=== PATIENT | female | born 1930 | race Caucasian/White ===

== ENCOUNTER → 2016-06-13 | Outpatient (CLI) | payer BC, OTHER ==
[~2016-06-13] MED LIST: ASPI325T45 PO; GARL400T4 PO; LEVO112T2 PO; MULT-845 PO
== END | disposition home or self-care (01) ==
LOC: C.LABPVFM 09:12
PROVIDERS: ATTEND Nurse Practitioner Family
DX: E03.9 Hypothyroidism, unspecified (principal)

== ENCOUNTER → 2016-08-03 | Outpatient (CLI) | payer BC | END | disposition home or self-care (01) | LOC: C.LABPVFM 09:57 | PROVIDERS: ATTEND Nurse Practitioner Family | DX: E03.9 Hypothyroidism, unspecified (principal) ==

== ENCOUNTER → 2016-09-27 | Outpatient (CLI) | payer BC ==
[2016-09-27 12:19] LABS: BASO % 0.5 %; BASO ABS # 0.04 K/uL (0-0.2); COMPLETE YES; EOS % 2.4 %; HEMATOCRIT 43.7 % (37-47); IG% 0.1 %; LYMPH % 29.3 %; LYMPH ABS # 2.17 K/uL (1.2-3.4); MEAN CELL VOLUME 97.5 fL (80-100); MEAN CORPUSCULAR HEMOGLOBIN 31.9 pg (25-34); MEAN CORPUSCULAR HGB CONC 32.7 g/dl (32-36); MEAN PLATELET VOLUME 10.4 fL (7.4-10.4); MONO % 6.4 %; NEUT % 61.3 %; PLATELET COUNT 187 K/uL (130-400); RED BLOOD COUNT 4.48 M/uL (4.2-5.4)
[2016-09-27 12:56] LABS: BLOOD UREA NITROGEN 15 mg/dl (7-18); BUN/CREATININE RATIO 13.2 (10-20); CARBON DIOXIDE 32 mmol/L (21-32); CHLORIDE 105 mmol/L (98-107); GLUCOSE 99 mg/dl (70-99); POTASSIUM 4.4 mmol/L (3.5-5.1); SODIUM 142 mmol/L (136-145)
[2016-09-27 13:02] LABS: CALCIUM 9.2 mg/dl (8.5-10.1)
== END | disposition home or self-care (01) ==
LOC: C.LABPVFM 10:24
PROVIDERS: ATTEND Nurse Practitioner
DX: L98.9 Disorder of the skin and subcutaneous tissue, unspecified (principal); R03.0 Elevated blood-pressure reading, without diagnosis of hypertension

== ENCOUNTER → 2016-12-14 | Outpatient (CLI) | payer BC | END | disposition home or self-care (01) | LOC: C.LABPVFM 09:40 | PROVIDERS: ATTEND Nurse Practitioner Family | DX: E03.9 Hypothyroidism, unspecified (principal) ==

== ENCOUNTER 2017-07-07 18:46 | Inpatient (IN) | payer OTHER, BC ==
[~2017-07-07] VITALS: Ht 149.9 cm; Wt 70.3 kg
[2017-07-07] MEDS ORDERED: ASPIRIN 81 MG CHEW PO STA (19:12)
--- NOTE | 2017-07-07 19:31 | EMERGENCY ROOM VISIT NOTE ---
History Report prepared by Cruz: Antonio Richards Under the Supervision of: Dr. Nash Lr M.D. First contact with patient: 19:03 Chief Complaint: RESPIRATORY PROBLEMS Stated Complaint: DIFF. BREATHING, SWALLOWING Nursing Triage Summary: Pt states around 1630 this afternoon she was cutting brush when she had a sudden onset of SOB that was followed by difficulty swallowing and left sided lip numbness. Upon EMS arrival pt stated swallowing difficulty and numbness had resolved by her voice "felt extremely hoarse". 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 The patient notes that she was outside cutting shrubs and performing various physical activities when she began to feel like she was going to faint. The patient states that she then developed intense generalized weakness, tightness/pressure in her chest, and shortness of breath. She notes that after walking back to her house, the pain in her her chest worsened and began to radiate into her neck. The patient states that the pain in her chest resolved, however, she notes that the pain in her neck worsened and isolated itself on the left side. She reports developing numbness in the left side of her face and neck, and loosing the ability to swallow properly. The patient notes that she took her pulse during the episode and noticed that it was racing. The patient states that the entire episode lasted for roughly one hour. She states that she normally performs physical activity and did not do anything out of the ordinary today. The patient denies any pain radiating down her arm or back, nausea, sweating, trauma, recent illness, fevers, bloody stool, abdominal pain, pain/swelling in her legs, or experiencing any episodes similar to this in the past. She notes that she did feel dizzy during the episode and reports that her sinuses were draining unusually heavily this morning. 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 Denies: Pain radiating down arm or back, trauma, recent illness, pain/swelling in her legs, or experiencing symptoms like this in the past. Review of Systems As above. All other systems reviewed were negative unless otherwise stated in history. At least 10 were reviewed Past Medical & Surgical Medical Problems: (1) Anginal equivalent (2) Arthritis (3) Hypothyroidism (4) Knee pain (5) Knee pain Old medical records were reviewed. Nurse's notes were reviewed and I agree with. Denies history of cardiac disease, diabetes, pulmonary disease Family History No pertinent family history Social History Smoking Status: Former Smoker Alcohol Use: none Drug Use: none Housing Status: lives with family Occupation Status: unemployed Current/Historical Medications Scheduled Calcium & Phosphorus W/ Vitami (Calcium Gummies), 1 TAB PO QAM Levothyroxine Sodium (Levothyroxine Sodium), 125 TAB PO QAM Multiple Vitamins W/ Minerals (Adult One Daily Gummies), 1 TAB PO QAM Scheduled PRN Aspirin (Aspirin), 650 MG PO DIRECTED PRN for Pain Allergies Coded Allergies: Sulfa Antibiotics (Verified Allergy, Intermediate, ITCHY "ALL OVER", ) Physical Exam Vital Signs Date Time Temp Pulse Resp B/P (MAP) Pulse Ox O2 Delivery O2 Flow Rate FiO2 07/07/17 21:00 90 18 130/80 96 Room Air 07/07/17 20:00 102 18 147/83 96 Room Air 07/07/17 18:57 102 07/07/17 18:53 96 Room Air 07/07/17 18:53 36.4 102 18 161/92 98 Room Air Physical Exam General: Non-ill appearing older female in no acute distress. HEENT: Normal cephalic atraumatic. Pupils are equal round and reactive to light. Extraocular movements are intact. Oropharynx is pink with moist mucous membranes. No swelling of the mouth lips or tongue. Neck: Supple with a midline trachea. No meningeal signs or stiffness, no JVD or bruits. No Stridor. Chest: Clear to auscultation bilaterally. No wheezes or rhonchi. No increased work of breathing. Heart: regular rate and rhythm. Abdomen: Soft nontender, nondistended without rebound guarding or rigidity. Extremities: No cyanosis clubbing or edema. No calf tenderness or assymetry Spine/Back. Non tender to palpation. No CVA tenderness Skin: Good turgor without rashes. Neurologic exam: Cranial nerves two through 12 are intact. Motor and sensation are intact and symmetrical throughout. Medical Decision & Procedures ER Provider Diagnostic Interpretation: Chest x-ray per my interpretation reveals no pneumothorax, failure, or infiltrate. CHEST ONE VIEW PORTABLE CLINICAL HISTORY: CHEST PAIN dyspnea COMPARISON STUDY: No previous studies for comparison. FINDINGS: The bones soft tissues and hemidiaphragms are normal. The cardiomediastinal silhouette is normal. The lungs are clear. The pulmonary vasculature is normal. IMPRESSION: Negative chest. The above report was generated using voice recognition software. It may contain grammatical, syntax or spelling errors. Electronically signed by: Jayesh Echols M.D. 07/07/2017 7:28 PM Dictated Date/Time: 07/07/2017 7:28 PM Laboratory Results 07/07/17 19:20 Red Blood Count 4.24, Mean Corpuscular Volume 96.2, Mean Corpuscular Hemoglobin 33.0, Mean Corpuscular Hemoglobin Concent 34.3, Mean Platelet Volume 8.8, Neutrophils (%) (Auto) 73.7, Lymphocytes (%) (Auto) 17.5, Monocytes (%) (Auto) 7.7, Eosinophils (%) (Auto) 0.7, Basophils (%) (Auto) 0.2, Neutrophils # (Auto) 7.02, Lymphocytes # (Auto) 1.67, Monocytes # (Auto) 0.73, Eosinophils # (Auto) 0.07, Basophils # (Auto) 0.02 07/07/17 19:20 Test 07/07/17 19:20 White Blood Count 9.53 K/uL (4.8-10.8) Red Blood Count 4.24 M/uL (4.2-5.4) Hemoglobin 14.0 g/dL (12.0-16.0) Hematocrit 40.8 % (37-47) Mean Corpuscular Volume 96.2 fL (80-100) Mean Corpuscular Hemoglobin 33.0 pg (25-34) Mean Corpuscular Hemoglobin Concent 34.3 g/dl (32-36) Platelet Count 177 K/uL (130-400) Mean Platelet Volume 8.8 fL (7.4-10.4) Neutrophils (%) (Auto) 73.7 % Lymphocytes (%) (Auto) 17.5 % Monocytes (%) (Auto) 7.7 % Eosinophils (%) (Auto) 0.7 % Basophils (%) (Auto) 0.2 % Neutrophils # (Auto) 7.02 K/uL (1.4-6.5) Lymphocytes # (Auto) 1.67 K/uL (1.2-3.4) Monocytes # (Auto) 0.73 K/uL (0.11-0.59) Eosinophils # (Auto) 0.07 K/uL (0-0.5) Basophils # (Auto) 0.02 K/uL (0-0.2) RDW Standard Deviation 49.3 fL (36.4-46.3) RDW Coefficient of Variation 13.9 % (11.5-14.5) Immature Granulocyte % (Auto) 0.2 % Immature Granulocyte # (Auto) 0.02 K/uL (0.00-0.02) Prothrombin Time 10.5 SECONDS (9.0-12.0) Prothromb Time International Ratio 1.0 (0.9-1.1) Activated Partial Thromboplast Time 23.3 SECONDS (21.0-31.0) Partial Thromboplastin Ratio 0.9 D-Dimer 1150 ug/L FEU (0-500) Anion Gap 7.0 mmol/L (3-11) Est Creatinine Clear Calc Drug Dose 24.2 ml/min Estimated GFR () 38.3 Estimated GFR (Non- 33.1 BUN/Creatinine Ratio 15.2 (10-20) Calcium Level 9.4 mg/dl (8.5-10.1) Total Bilirubin 0.5 mg/dl (0.2-1) Direct Bilirubin 0.2 mg/dl (0-0.2) Aspartate Amino Transf (AST/SGOT) 28 U/L (15-37) Alanine Aminotransferase (ALT/SGPT) 27 U/L (12-78) Alkaline Phosphatase 78 U/L (45-117) Total Creatine Kinase 183 U/L (26-192) Creatine Kinase MB 4.1 ng/ml (0.5-3.6) Creatine Kinase MB Ratio 2.2 (0-3.0) Total Protein 7.8 gm/dl (6.4-8.2) Albumin 3.9 gm/dl (3.4-5.0) Lipase 216 U/L (73-393) Laboratory studies as stated above per my review. Medications Administered Medications (Trade) Dose Ordered Sig/Rickey Route Start Time Stop Time Status Last Admin Dose Admin Aspirin (Aspirin Chew) 324 mg NOW STAT PO 07/07/17 19:12 07/07/17 19:14 DC 07/07/17 19:29 324 MG ECG Per My Interpretation Indication: chest pain Rate (beats per minute): 103 Rhythm: sinus tachycardia Findings: no acute ischemic change, no ectopy, other Comparison ECG Date: no prior available ED Course 1904: Past medical records reviewed. The patient was evaluated in room C7, and a complete history and physical examination were performed. 1911: Ordered Aspirin 324 mg PO 1956: I reevaluated the patient, her Troponin levels are elevated. 1999: I reevaluated the patient, she is resting comfortably without chest pain. 2021: I discussed the patient's case with Dr. 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 She was placed in room C7. She is here after having an episode of chest discomfort and shortness of breath. She also fell like she was going to pass out and had pain into her jaw with a little bit of numbness as well and she no other neurologic symptoms. She has no cardiac history. This did occur while she was doing exertional work which is not unusual for her. She is a very fit 87-year-old woman and has never had anything like this before. By the time the ambulance arrived she felt better and she is asymptomatic at present. She looks well on exam. She was given aspirin 324 mg chewable. EKG chest x-ray multiple blood testing was obtained. She was reassessed frequently. She has remained asymptomatic. Chest x-ray does not show congestive heart failure pneumonia or pneumothorax. Her initial EKG does not show any acute STEMI or acute ischemic changes. She has no acute electrolyte or metabolic abnormality. Her troponin was mildly elevated and with this and her story very concerning for angina, I do think she needs to be admitted for further treatment and evaluation cardiac workup. I consulted Dr. Torrez to see to her in the ER for these measures. Medication Reconcilliation Current Medication List: was personally reviewed by me Blood Pressure Screening Patient's blood pressure: Elevated blood pressure Blood pressure disposition: Referred to PCP Consults Time Called: 2017 Consulting Physician: Dr. Meli Goodman [facility] Returned Call: 2021 I discussed the patient's case with Dr. Meli ARGUELLO, he will evaluate the patient for further treatment and care Impression Primary Impression: Precordial chest pain Additional Impressions: Unstable angina Elevated troponin Scribe Attestation The scribe's documentation has been prepared under my direction and personally reviewed by me in its entirety. I confirm that the note above accurately reflects all work, treatment, procedures, and medical decision making performed by me. Departure Information Dispostion Being Evaluated By Hospitalist Referrals Margarita Maki (PCP) Patient Instructions My [facility] Problem Qualifiers
[2017-07-07 19:33] LABS: BASO % 0.2 %; BASO ABS # 0.02 K/uL (0-0.2); EOS % 0.7 %; EOS ABS # 0.07 K/uL (0-0.5); HEMATOCRIT 40.8 % (37-47); IG# 0.02 K/uL (0.00-0.02); LYMPH % 17.5 %; LYMPH ABS # 1.67 K/uL (1.2-3.4); MEAN CELL VOLUME 96.2 fL (80-100); MEAN CORPUSCULAR HGB CONC 34.3 g/dl (32-36); MEAN PLATELET VOLUME 8.8 fL (7.4-10.4); MONO % 7.7 %; MONO ABS # 0.73 K/uL (0.11-0.59); NEUT % 73.7 %; NEUT ABS # 7.02 K/uL (1.4-6.5); PLATELET COUNT 177 K/uL (130-400); RED CELL DISTRIBUTION WIDTH CV 13.9 % (11.5-14.5); RED CELL DISTRIBUTION WIDTH SD 49.3 fL (36.4-46.3); WHITE BLOOD COUNT 9.53 K/uL (4.8-10.8)
[2017-07-07 19:45] LABS: PTT PATIENT 23.3 SECONDS (21.0-31.0)
[2017-07-07 19:51] LABS: ALBUMIN 3.9 gm/dl (3.4-5.0); CALCIUM 9.4 mg/dl (8.5-10.1); CREATININE 1.43 mg/dl (0.60-1.20); POTASSIUM 3.9 mmol/L (3.5-5.1)
[2017-07-07 19:56] LABS: CKMB 4.1 ng/ml (0.5-3.6); TOTAL PROTEIN 7.8 gm/dl (6.4-8.2)
[2017-07-07] MEDS ORDERED: CALC1CHW47 PO (20:33)
[2017-07-07] MEDS ORDERED: LEVO125T5 PO (20:33)
[2017-07-07] MEDS ORDERED: MULT20CH PO (20:33)
[2017-07-07] MEDS ORDERED: ONDANSETRON INJ 2 MG/ML 2 ML VIAL IV PRN (22:00)
[2017-07-07] MEDS ORDERED: POLYETHYLENE (MIRALAX) 17 GM PACK PO PRN (22:00)
[2017-07-07] MEDS ORDERED: ACETAMINOPHEN 325 MG TAB PO PRN (22:00)
[2017-07-07] MEDS ORDERED: MoRPHine SULFATE 2 MG/ML CARP IV PRN (22:00)
[2017-07-07] MEDS ORDERED: NITROGLYCERIN 0.4 MG SL PER TAB CHARGE SL PRN (22:00)
[2017-07-07] MEDS ORDERED: MAGNESIUM HYDROXIDE SUSP 30 ML UDC PO PRN (22:00)
[2017-07-07] MEDS ORDERED: ALUMINUM/MAGNESIUM/SIMETH (MAALOX MAX) 30 ML UDC PO PRN (22:00)
[2017-07-07] MEDS ORDERED: HEPARIN SOD 5000 UNIT/0.5 ML CARP ONE (22:28)
[2017-07-07] MEDS ORDERED: HEPARIN 25000 UNIT/500 ML D5W ONE (22:28)
[2017-07-07] MEDS ORDERED: IV FLUIDS COMPLETED PRN (22:30)
--- NOTE | 2017-07-07 22:34 | History and Physical ---
History & Physical Date & Time of Service: Jul 07, 2017 at 21:58 Chief Complaint: Diff. Breathing, Swallowing Primary Care Physician: Margarita Maki History of Present Illness Source: patient 87 y/o F Hx hypothyroidism only. The pt was out doing some yard work in cold weather. She developed acute SOB followed by pain in her L neck and perioral paresthesias. She alerted EMS. She reports that her symptoms had abated by the time they arrived at her house. She denies any nausea, vomiting, diaphoresis or fevers. Initial labs are notable for an elevated creatinine and elevated CKMB. Troponin is pending at the time of admission. An EKG does not support ischemia. Past Medical/Surgical History 1) Hypothyroidism 2) Hard of hearing Family History No pertinent family history History of longevity - no known history of CAD Social History Smoking Status: Former Smoker Drug Use: none Occupational Status: unemployed Allergies Coded Allergies: Sulfa Antibiotics (Verified Allergy, Intermediate, ITCHY "ALL OVER", ) Home Medications Scheduled Calcium & Phosphorus W/ Vitami (Calcium Gummies), 1 TAB PO QAM Levothyroxine Sodium (Levothyroxine Sodium), 125 TAB PO QAM Multiple Vitamins W/ Minerals (Adult One Daily Gummies), 1 TAB PO QAM Scheduled PRN Aspirin (Aspirin), 650 MG PO DIRECTED PRN for Pain Review of Systems Constitutional: No fever, No chills, No sweats Eyes: No worsening of vision ENT: No hearing loss, No unusual epistaxis, No nasal symptoms Respiratory: + shortness of breath, + dyspnea on exertion, No cough, No sputum , No wheezing Cardiovascular: + problem reported (Neck pain), No chest pain Abdomen: No pain, No nausea, No vomiting Musculoskeletal: No joint pain Genitourinary - Female: No dysuria Neurologic: No memory loss, No paralysis, No weakness Psychiatric: No depression symptoms Endocrine: No fatigue Hematologic / Lymphatic: No abnormal bleeding/bruising Integumentary: No rash Allergic / Immunologic: No environmental allergies Physical Exam Vital Signs Date Time Temp Pulse Resp B/P (MAP) Pulse Ox O2 Delivery O2 Flow Rate FiO2 07/07/17 21:00 90 18 130/80 96 Room Air 07/07/17 20:00 102 18 147/83 96 Room Air 07/07/17 18:57 102 07/07/17 18:53 96 Room Air 07/07/17 18:53 36.4 102 18 161/92 98 Room Air General Appearance: WD/WN, no apparent distress Head: normocephalic Eyes: normal inspection ENT: normal ENT inspection, pharynx normal Neck: supple, no JVD Respiratory/Chest: chest non-tender, lungs clear, normal breath sounds Cardiovascular: regular rate, rhythm, no edema, no gallop, + tachycardia ( Borderline tachy) Abdomen/GI: normal bowel sounds, non tender, soft Back: normal inspection, no CVA tenderness Extremities/Musculoskelatal: normal inspection, no calf tenderness, normal capillary refill 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, no motor/sensory deficits, alert, oriented x 3 Skin: normal color Diagnostics Laboratory Results Results Past 24 Hours Test 07/07/17 19:12 07/07/17 19:20 Range/Units Creatine Kinase MB Ratio 2.2 0-3.0 White Blood Count 9.53 4.8-10.8 K/uL Red Blood Count 4.24 4.2-5.4 M/uL Hemoglobin 14.0 12.0-16.0 g/dL Hematocrit 40.8 37-47 % Mean Corpuscular Volume 96.2 80-100 fL Mean Corpuscular Hemoglobin 33.0 25-34 pg Mean Corpuscular Hemoglobin Concent 34.3 32-36 g/dl Platelet Count 177 130-400 K/uL Mean Platelet Volume 8.8 7.4-10.4 fL Neutrophils (%) (Auto) 73.7 % Lymphocytes (%) (Auto) 17.5 % Monocytes (%) (Auto) 7.7 % Eosinophils (%) (Auto) 0.7 % Basophils (%) (Auto) 0.2 % Neutrophils # (Auto) 7.02 1.4-6.5 K/uL Lymphocytes # (Auto) 1.67 1.2-3.4 K/uL Monocytes # (Auto) 0.73 0.11-0.59 K/uL Eosinophils # (Auto) 0.07 0-0.5 K/uL Basophils # (Auto) 0.02 0-0.2 K/uL RDW Standard Deviation 49.3 36.4-46.3 fL RDW Coefficient of Variation 13.9 11.5-14.5 % Immature Granulocyte % (Auto) 0.2 % Immature Granulocyte # (Auto) 0.02 0.00-0.02 K/uL Prothrombin Time 10.5 9.0-12.0 SECONDS Prothromb Time International Ratio 1.0 0.9-1.1 Activated Partial Thromboplast Time 23.3 21.0-31.0 SECONDS Partial Thromboplastin Ratio 0.9 Sodium Level 138 136-145 mmol/L Potassium Level 3.9 3.5-5.1 mmol/L Chloride Level 106 98-107 mmol/L Carbon Dioxide Level 25 21-32 mmol/L Anion Gap 7.0 3-11 mmol/L Blood Urea Nitrogen 22 7-18 mg/dl Creatinine 1.43 0.60-1.20 mg/dl Est Creatinine Clear Calc Drug Dose 24.2 ml/min Estimated GFR () 38.3 Estimated GFR (Non- 33.1 BUN/Creatinine Ratio 15.2 10-20 Random Glucose 93 70-99 mg/dl Calcium Level 9.4 8.5-10.1 mg/dl Total Bilirubin 0.5 0.2-1 mg/dl Direct Bilirubin 0.2 0-0.2 mg/dl Aspartate Amino Transf (AST/SGOT) 28 15-37 U/L Alanine Aminotransferase (ALT/SGPT) 27 12-78 U/L Alkaline Phosphatase 78 45-117 U/L Total Creatine Kinase 183 26-192 U/L Creatine Kinase MB 4.1 0.5-3.6 ng/ml Total Protein 7.8 6.4-8.2 gm/dl Albumin 3.9 3.4-5.0 gm/dl Lipase 216 73-393 U/L EKG Sinus tach Impression Assessment and Plan 87 y/o F Hx hypothyroidism only. The pt was out doing some yard work in cold weather. She developed acute SOB followed by pain in her L neck and perioral paresthesias. She alerted EMS. She reports that her symptoms had abated by the time they arrived at her house. She denies any nausea, vomiting, diaphoresis or fevers. Initial labs are notable for an elevated creatinine and elevated CKMB. Troponin is pending at the time of admission. An EKG does not support ischemia. 1) Acute SOB with neck pain - may represent an anginal equivalent. She will be placed on ASA, a statin, and full dose Heparin pending serial troponins. It is noted that she is tachycardic. She is not tachypneic, however, acute PE is in the differential. We will obtain a Ddimer and consider a CTA if (+). 2) RF - last creat on record dates to 10/07 and was WNL - this is likly prerenal as she was exerting herself outdoors today. We will provide IVF and trend her BMP. 3) Hypothyroidism - cont Synthroid. Full code - Full dose Heparin Total time for this admit including review of labs, meds, EKG, records, imaging - discussion with pt and ER attending - 35 min Resuscitation Status VTE Prophylaxis Will order VTE Prophylaxis: Yes
[2017-07-07 23:45] VITALS: BP 150/76; PULSE 81; TEMP 36.5; O2SAT 98; Ht 149.9 cm; Wt 70.3 kg
[2017-07-07] MEDS: ATORVASTATIN 20 MG TAB PO SCH (23:59)
[2017-07-08] MEDS: HEPARIN 25,000 UNIT/500ML D5W 500 ML IV SCH ×3 (00:01→06:50)
[2017-07-08] MEDS: SODIUM CHLORIDE 0.9% 1000ML 1,000 ML IV SCH ×2 (00:20→09:57)
[2017-07-08] MEDS ORDERED: OPTIRAY 320 IV PRN (00:45)
[2017-07-08] MEDS ORDERED: INFLUENZA ADMINISTRATION CHARGE ONE (02:30)
[2017-07-08] MEDS ORDERED: PNEUMOCOCCAL ADMINISTRATION CHARGE ONE (02:30)
[2017-07-08] MEDS ORDERED: INFLUENZA VIRUS QUAD VACCINE 0.5 ML SYR IM. ONE (02:30)
[2017-07-08] MEDS ORDERED: PNEUMOCOCCAL POLYSACCHARIDES 25 MCG/0.5 ML VIAL/SYR IM. ONE (02:30)
[2017-07-08 04:09] VITALS: BP 139/79; PULSE 77; TEMP 36.7; O2SAT 95
[2017-07-08 05:09] LABS: HEMATOCRIT 37.1 % (37-47); HEMOGLOBIN 12.7 g/dL (12.0-16.0)
[2017-07-08 05:24] LABS: CALCIUM 8.6 mg/dl (8.5-10.1); CREATININE 1.16 mg/dl (0.60-1.20); POTASSIUM 3.9 mmol/L (3.5-5.1)
[2017-07-08 05:30] LABS: PTT PATIENT 96.5 SECONDS (21.0-31.0)
[2017-07-08] MEDS: LEVOTHYROXINE 125 MCG TAB PO SCH (06:17)
[2017-07-08 07:17] VITALS: BP 119/67; PULSE 79; TEMP 36.8; O2SAT 96
[2017-07-08] MEDS ORDERED: PERFLUTREN LIPID MICROSPHERE (DEFINITY) IV ONE (07:48)
[2017-07-08] MEDS: ASPIRIN 81 MG ECTAB PO SCH (08:32)
--- NOTE | 2017-07-08 09:07 | DIAGNOSTIC IMAGING REPORT ---
(CHEST FOR PE) ANGIO WITH CT DOSE: 265.45 mGy.cm HISTORY: 87 years-old Female with . Presents with acute atypical chest pain TECHNIQUE: Multiple CTA images of the chest were obtained after the intravenous administration of 89 ml Optiray 320. Coronal and sagittal MIPS were obtained from the axial data set and were submitted for review. A dose lowering technique was utilized adhering to the principles of ALARA. COMPARISON: Chest radiograph of same day. FINDINGS: CTA: Heart is mildly enlarged with coronary arterial disease. Mitral and aortic annular calcifications are also present. No pericardial effusion. The thoracic aorta demonstrates moderate atherosclerosis without aneurysm or dissection. The imaged great vessels appear to be patent. The pulmonary arterial tree is opacified to level of the subsegmental branches and demonstrates no focal filling defects to suggest pulmonary thromboembolic disease. There is reflux of contrast into the IVC. CT CHEST: No dominant thyroid nodule identified. Nonspecific mildly enlarged right hilar lymph node, 1.6 x 1.1 cm. There is no pneumothorax or pleural effusion. Mild dependent subsegmental bibasilar atelectasis/pleural-parenchymal scarring. Mild mosaic attenuation at the level the lung bases may reflect areas of air trapping. No suspicious pulmonary nodules or masses identified. Central airways are patent. Calcific granulomas are seen throughout the spleen. 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 12 x 16 mm left adrenal adenoma with nodular thickening of the right adrenal gland. Mild generalized pancreatic atrophy. Soft tissues are unremarkable. The bones appear moderately demineralized. Multilevel endplate spurring and facet arthrosis of the spine. IMPRESSION: 1. No acute aortic pathology or evidence of pulmonary thromboembolic disease. 2. Nonspecific mildly enlarged right hilar lymph node, likely reactive. 3. Mild subsegmental bibasilar atelectasis/pleural parenchymal scarring without lobar airspace consolidation to suggest pneumonia. 4. Cardiomegaly. 5. Additional findings as above. The above report was generated using voice recognition software. It may contain grammatical, syntax or spelling errors. Electronically signed by: Cesar Joseph M.D. 07/08/2017 9:06 AM Dictated Date/Time: 07/08/2017 8:54 AM
[2017-07-08 11:21] VITALS: BP 134/70; PULSE 82; TEMP 36.8; O2SAT 92
[2017-07-08 13:16] LABS: PTT PATIENT 63.1 SECONDS (21.0-31.0)
[2017-07-08 14:32] VITALS: BP 148/83; PULSE 85; TEMP 36.7; O2SAT 93
[2017-07-08] MEDS ORDERED: METOPROLOL TARTRATE 25 MG TAB PO ONE (14:50)
--- NOTE | 2017-07-08 14:51 | CARDIOLOGY CONSULTATION ---
DATE OF CONSULTATION: 07/08/2017 TIME: 14:22 p.m. CONSULTING PHYSICIAN: Dr. Garrison. REASON FOR CONSULTATION: Non-ST elevation myocardial infarction. HISTORY OF PRESENT ILLNESS: Ms. Covarrubias is a very pleasant 87-year-old female with history significant for dyslipidemia who presented to [facility] with shortness of breath and chest discomfort. [place] trimming brush with a bow saw. She then felt dizzy with near syncope and associated shortness of breath. She squatted down to avoid passing out. She felt quite weak and upon exertion, she noticed substernal chest tightening, while she was walking back to her home. She had to stop several times secondary to weakness. By the time she got to her house, her symptoms were more severe. She noted radiation of the pain to the left side of her neck. She also noted that her heart felt as though it was racing. She denies actual syncope. She denies edema or other associated symptoms. She did ask her brother to call for help and he called an ambulance. By the time EMS arrived at her home, her symptoms had completely resolved. She estimates that her symptoms lasted approximately 1 hour. Since her initial episode, she has not had any further symptoms. She denies ever having any symptoms in the past. She denies ever having a history of coronary artery disease or other cardiac issues. She does have a history of dyslipidemia and states that she has tried several statins including Lipitor, Crestor, "all" the other medications. She did not tolerate these medications secondary to myalgias/arthralgias. She even tried a nonstatin therapy and stated that she was unable to tolerate that as well. She is currently free of any pain or shortness of breath. She denies orthopnea, PND, recent fevers, abdominal pain, nausea, vomiting, melena, hematochezia, hematuria, or other bleeding. REVIEW OF SYSTEMS: As above and review of systems otherwise negative/unremarkable. PAST MEDICAL HISTORY: 1. Dyslipidemia. 2. Hypothyroidism. 3. Carpal tunnel syndrome. 4. Arthritis. HOME MEDICATIONS: Include levothyroxine 125 mcg daily and multivitamin. INPATIENT MEDICATIONS: Include aspirin 81 mg daily, atorvastatin 20 mg daily, heparin drip per protocol, Synthroid 125 mcg daily, and normal saline 100 mL per hour. ALLERGIES: INCLUDE PEANUTS, STATINS AND SULFA DRUGS. SOCIAL HISTORY: Denies tobacco abuse. She denies alcohol or drugs. She is a . She has 3 children, Sukhjinder, Sourav, and Kirsten. Her children live out of state including [place], [place] and [place]. She has grandchildren. She lives with her brother, Jr. Her sister, Sonja, is present at her bedside. FAMILY HISTORY: No known premature CAD. Jr had an aortic aneurysm status post repair. PHYSICAL EXAMINATION: VITAL SIGNS: Temperature 36.8 degrees, heart rate 82 beats per minute, respiration rate 18, blood pressure 134/70 mmHg, oxygen saturation 92% on room air. Weight 69.1 kg. GENERAL: No acute distress. She is alert and oriented. HEENT: Anicteric sclerae. The right side of her mouth appears drooping at times, but she states that it is secondary to the fact that she feels quite dry. She appears to have a normal movement when she smiles. NECK: No appreciable JVD. No bruits. Normal carotid upstrokes bilaterally. CARDIAC: PMI was nonpalpable. There was no ventricular heave. Regular, normal S1, S2, 2/6 early peaking systolic ejection murmur best heard at the right upper sternal border. No rubs or gallops. LUNGS: Faint crackles at the bases, otherwise clear. ABDOMEN: Soft, nontender, nondistended. Normoactive bowel sounds. EXTREMITIES: No cyanosis or edema. 2+ radial pulses bilaterally. Chester test okay. 2+ femoral pulses bilaterally without bruit. 2+ dorsalis pedis pulses bilaterally. No cyanosis. CHEST: Nontender to palpation. PSYCHIATRIC: Affect appears appropriate. LABORATORY DATA: White blood cell count 9.53, hemoglobin 12.7, and platelets 177. Sodium 139, potassium 3.9, BUN 19, creatinine 1.16 down from 1.43, magnesium 2.2. Troponin 0.813, is the current peak. Initial troponin was 0.672. IMAGING DATA: Telemetry personally reviewed. No arrhythmia noted. ECG on presentation was personally reviewed. ECG - 07/07/2017 demonstrated sinus tachycardia at 103 beats per minute. Echocardiogram images from 07/08/2017 personally reviewed. Preliminary review demonstrated normal left ventricular systolic function and wall motion. Formal review to follow. ASSESSMENT AND PLAN: 1. Non-ST elevation myocardial infarction: The symptoms were concerning for acute coronary syndrome. Agree with aspirin and heparin drip. We will initiate low dose beta lucy therapy. She is intolerant to statins and has refused statin therapy while hospitalized. Recommend coronary angiography, electively. There is no urgent indication that she is currently chest pain free. Risks and benefits were discussed with her and she was made aware that CT surgery is not available at this facility. She was agreeable to undergo the procedure tomorrow. N.p.o. after midnight except for medications. She can, however, eat today. We will repeat ECG and trend troponins until peaked. 2. Dyslipidemia: She is intolerant to statin therapy and states that she has tried several different statins. 3. Palpitations: She also describes a heart racing feeling, during her episode. Continue with telemetry to evaluate for arrhythmia. 4. Disposition: Cardiology will continue to follow. The patient's care has been discussed with Dr. Crawley of the primary hospitalist service. Highly complex medical issues. Thank you for allowing me to participate in the care of Ms. Covarrubias. LUZ MARIA
--- NOTE | 2017-07-08 16:51 | ECHOCARDIOGRAM REPORT ---
*NOTICE TO RECEIVING CONSTITUTION PARTY AGENCY This information is strictly Confidential and protected under [place] law. [place] law prohibits you from making any further disclosure of this information unless further disclosure is expressly permitted by the written consent of the person to whom it pertains or is authorized by law. A general authorization for the release of medical or other information is not sufficient for this purpose. Hospital accepts no responsibility if the information is made available to any other person, INCLUDING THE PATIENT. Interpretation Summary * Name: PREMA DECKER Study Date: 07/08/2017 07:20 AM BP: 139/79 mmHg * Patient Location: [facility]\S\[id number]\S\1 HR: 77 * : 1930 (M/d/yyyy) Gender: Female Height: 59 in * Age: 87 yrs Ethnicity: [place] Weight: 156 lb * Ordering Physician: Mino Garrison * Referring Physician: Self, Referred * Performed By: Bell Howe RDCS * * Reason For Study: Elevated troponin * BSA: 1.7 m2 * -- Conclusions -- * 1. Normal left ventricular size and systolic function. EF 60-65%. No regional wall motion abnormalities. Mild concentric left ventricular hypertrophy. * 2. Sclerotic aortic valve without significant stenosis. * 3. Technically difficult study, enhanced with IV Definity. * 4. No prior study available for comparison. Procedure Details * A complete two-dimensional transthoracic echocardiogram was performed (2D, M-mode, Doppler and color flow Doppler). * A contrast injection of Definity was performed to improve assessment of LV function. * Contrast was injected into an intravenous site in the right arm. * One vial of Definity ultrasound contrast was diluted in normal saline to a total volume of 10 ml. A total of '2' ml of solution was administered during imaging. * Lot # [id number] of Definity utilized for procedure. * Expiration date 1 jun 11. * The attending nurse who injected the contrast agent was Brandon Montaño RN. Left Ventricle * Normal left ventricular size and systolic function. EF 60-65%. No regional wall motion abnormalities. Mild concentric left ventricular hypertrophy. Right Ventricle * The right ventricle is normal in size and function. * The right ventricular systolic function is normal as assessed by tricuspid annular plane systolic excursion (TAPSE) (normal >1.5 cm). Atria * The left atrial size is normal. * Right atrial size is normal. * There is no evidence of atrial septal defect, but resolution does not allow assessment for a patent foramen ovale. Mitral Valve * There is moderate mitral annular calcification. * There is no mitral valve stenosis. * There is trace mitral regurgitation. Tricuspid Valve * The tricuspid valve is not well visualized, but is grossly normal. * There is no tricuspid stenosis. * Significant tricuspid regurgitation is absent. Aortic Valve * Sclerotic aortic valve without significant stenosis. * No hemodynamically significant valvular aortic stenosis. * There is no significant aortic regurgitation. Pulmonic Valve * The pulmonary valve is inadequately visualized, but the Doppler data is adequate for interpretation. * There is no pulmonic valvular stenosis. * There is no significant pulmonary regurgitation. Great Vessels * The aortic root is normal size. * Ascending aorta of normal dimension * Normal pulmonary venous flow pattern. Pericardium/Pleural * There is no pericardial effusion. Great Vessels * Normal IVC size with mildly reduced inspiratory collapse. MMode 2D Measurements and Calculations IVSd 1.3 cm LVIDd 3.1 cm LVIDs 2.1 cm LVPWd 1.3 cm IVS/LVPW 0.99 FS 33.9 % EDV(Teich) 38.4 ml ESV(Teich) 13.7 ml EF(Teich) 64.2 % EDV(cubed) 30.3 ml ESV(cubed) 8.8 ml EF(cubed) 71.1 % LV mass(C)d 130.8 grams LV mass(C)dI 78.8 grams/m\S\2 SV(Teich) 24.7 ml SI(Teich) 14.9 ml/m\S\2 SV(cubed) 21.5 ml SI(cubed) 13.0 ml/m\S\2 Ao root diam 3.0 cm Ao root area 7.1 cm\S\2 ACS 1.5 cm LA dimension 3.0 cm asc Aorta Diam 2.6 cm LA/Ao 1.0 Doppler Measurements and Calculations Ao V2 max 138.9 cm/sec Ao max PG 7.7 mmHg Ao max PG (full) 3.5 mmHg LV V1 max PG 4.2 mmHg LV V1 max 102.5 cm/sec PA V2 max 74.2 cm/sec PA max PG 2.2 mmHg PA acc slope 320.3 cm/sec\S\2 PA acc time 0.19 sec RAP systole 8.0 mmHg PA pr(Accel) -4.33 mmHg
[2017-07-08 19:00] VITALS: BP 108/58; PULSE 73; TEMP 36.7; O2SAT 95
[2017-07-08] MEDS: ATORVASTATIN 20 MG TAB PO SCH (20:09)
[2017-07-08] MEDS: METOPROLOL TARTRATE 25 MG TAB PO SCH (20:09)
--- NOTE | 2017-07-08 23:43 | Progress Note ---
Subjective Date of Service: Jul 08, 2017. Subjective Pt evaluation today including: conversation w/ patient Patient reports feeling well. Patient has no complaints today. Understands she is having a cath tomorow. Problem List Medical Problems: (1) Arthritis Status: Chronic (2) Contusion of right elbow Status: Acute (3) Elevated troponin Status: Acute (4) Fracture of right distal radius Status: Acute (5) Hypothyroidism Status: Chronic (6) Precordial chest pain Status: Acute (7) Unstable angina Status: Acute Review of Systems All Other Systems: Reviewed and Negative Medications Current Inpatient Medications Medications (Trade) Dose Ordered Sig/Rickey Route Start Time Stop Time Status Last Admin Dose Admin Levothyroxine Sodium (Synthroid Tab) 125 mcg DAILYBB PO 07/08/17 06:30 08/07/17 06:29 07/09/17 06:44 125 MCG Acetaminophen (Tylenol Tab) 650 mg Q4H PRN PO 07/07/17 22:00 08/06/17 21:59 Al Hydrox/Mg Hydrox/Simethicone (Maalox Max Susp) 15 ml Q4H PRN PO 07/07/17 22:00 08/06/17 21:59 Magnesium Hydroxide (Milk Of Magnesia Susp) 30 ml Q12H PRN PO 07/07/17 22:00 08/06/17 21:59 Ondansetron HCl (Zofran Inj) 4 mg Q6H PRN IV 07/07/17 22:00 08/06/17 21:59 Nitroglycerin (Nitrostat Tab) 0.4 mg UD PRN SL 07/07/17 22:00 08/06/17 21:59 Morphine Sulfate (MoRPHine SULFATE INJ) 2 mg Q30M PRN IV 07/07/17 22:00 07/21/17 21:59 Polyethylene (Miralax Powder Packet) 17 gm DAILY PRN PO 07/07/17 22:00 08/06/17 21:59 Aspirin (Ecotrin Tab) 81 mg QAM PO 07/08/17 09:00 08/07/17 08:59 07/09/17 07:04 81 MG Miscellaneous (Iv Fluids Completed) 1 ea PRN PRN N/A 07/07/17 22:30 07/07/18 22:29 Heparin Sodium/ Dextrose 500 ml @ 18 mls/hr Q24H IV 07/07/17 22:45 08/06/17 22:44 07/09/17 02:24 18 MLS/HR Ioversol (Optiray 320) 100 ml UD PRN IV 07/08/17 00:45 07/12/17 00:44 Metoprolol Tartrate (Lopressor Tab) 25 mg BID PO 07/08/17 21:00 08/07/17 20:59 07/08/17 20:09 25 MG Objective Vital Signs Date Time Temp Pulse Resp B/P (MAP) Pulse Ox O2 Delivery O2 Flow Rate FiO2 07/08/17 20:00 Room Air 07/08/17 19:00 36.7 73 20 108/58 (75) 95 Room Air 07/08/17 16:00 Room Air 07/08/17 14:32 36.7 85 18 148/83 (104) 93 Room Air 07/08/17 12:00 Room Air 07/08/17 11:21 36.8 82 18 134/70 (91) 92 Room Air 07/08/17 08:00 Room Air 07/08/17 07:17 36.8 79 18 119/67 (84) 96 Room Air 07/08/17 04:09 36.7 77 20 139/79 (99) 95 Room Air 07/08/17 04:00 Room Air 07/07/17 23:45 36.5 81 16 150/76 98 Room Air Physical Exam General Appearance: WD/WN, no apparent distress ENT: normal ENT inspection Neck: supple, no adenopathy Respiratory/Chest: chest non-tender, lungs clear, normal breath sounds Cardiovascular: regular rate, rhythm, no edema Abdomen: normal bowel sounds, non tender, soft Extremities: non-tender Neurologic/Psychiatric: alert, oriented x 3 Skin: normal color Lymphatic: no adenopathy Laboratory Results Last 24 Hours Test 07/08/17 04:53 07/08/17 12:37 07/08/17 14:55 Hemoglobin 12.7 g/dL Hematocrit 37.1 % Activated Partial Thromboplast Time 96.5 SECONDS 63.1 SECONDS Partial Thromboplastin Ratio 3.7 2.4 Sodium Level 139 mmol/L Potassium Level 3.9 mmol/L Chloride Level 107 mmol/L Carbon Dioxide Level 26 mmol/L Anion Gap 6.0 mmol/L Blood Urea Nitrogen 19 mg/dl Creatinine 1.16 mg/dl Est Creatinine Clear Calc Drug Dose 29.4 ml/min Estimated GFR () 49.4 Estimated GFR (Non- 42.6 BUN/Creatinine Ratio 16.0 Random Glucose 100 mg/dl Calcium Level 8.6 mg/dl Magnesium Level 2.2 mg/dl Troponin I 0.813 ng/ml 0.428 ng/ml Assessment and Plan 87 y/o F Hx hypothyroidism only. The pt was out doing some yard work in cold weather. She developed acute SOB followed by pain in her L neck and perioral paresthesias. She alerted EMS. She reports that her symptoms had abated by the time they arrived at her house. She denies any nausea, vomiting, diaphoresis or fevers. Initial labs are notable for an elevated creatinine and elevated CKMB. Troponin is pending at the time of admission. An EKG does not support ischemia. 1) NSTEMI trop. peaked at .8 will continue HEPARIN DRIP. AWAITNG CARDIAC CATH tomorrow. Cardiology on board. 2) RF - last creat on record dates to 10/07 and was WNL - this is likly prerenal as she was exerting herself outdoors today. We will provide IVF and trend her BMP. 3) Hypothyroidism - cont Synthroid. Full code - Full dose Heparin
[2017-07-09] VITALS (15 sets, daily range): BP systolic 125–164; BP diastolic 67–84; PULSE 59–81; TEMP 36.4–36.8; O2SAT 92–98
[2017-07-09] MEDS: HEPARIN 25,000 UNIT/500ML D5W 500 ML IV SCH (02:24)
[2017-07-09] MEDS: LEVOTHYROXINE 125 MCG TAB PO SCH (06:44)
[2017-07-09 07:01] LABS: HEMATOCRIT 37.6 % (37-47); HEMOGLOBIN 12.6 g/dL (12.0-16.0); MEAN CELL VOLUME 97.7 fL (80-100); MEAN CORPUSCULAR HEMOGLOBIN 32.7 pg (25-34); MEAN CORPUSCULAR HGB CONC 33.5 g/dl (32-36); MEAN PLATELET VOLUME 9.8 fL (7.4-10.4); PLATELET COUNT 144 K/uL (130-400); RED CELL DISTRIBUTION WIDTH CV 14.4 % (11.5-14.5); RED CELL DISTRIBUTION WIDTH SD 51.9 fL (36.4-46.3)
[2017-07-09] MEDS: ASPIRIN 81 MG ECTAB PO SCH (07:04)
--- NOTE | 2017-07-09 07:12 | Pre Sedation Assessment ---
Pre Sedation Assessment General Date of Sedation: Jul 09, 2017. Vital Signs Past 12 Hours Date Time Temp Pulse Resp B/P (MAP) Pulse Ox O2 Delivery O2 Flow Rate FiO2 07/09/17 04:00 36.6 71 20 156/79 (104) 95 Room Air 07/09/17 04:00 Room Air 07/09/17 00:27 36.4 72 20 125/74 (91) 94 Room Air 07/09/17 00:00 Room Air 07/08/17 20:00 Room Air Review Cardiovascular: regular rate, rhythm, + systolic murmur Lungs: lungs clear Pre-Sedation Airway Assessment Smoking Status: Never Smoker Oral Cavity: Dentures Mallampati Classification: Class IV ASA Classification: Class III NPO Status Date of Last Intake of Fluids: Jul 08, 2017 Time of Last Intake of Fluids: 2350 Date of Last Intake of Solids: Jul 08, 2017 Time of Last Intake of Solids: 17:00 Procedure Planning Contraindications for Sedation: None Current Medications Reviewed: Yes Notes The planned sedation has been discussed with the patient. Informed Consent was obtained. I have identified the patient, determined the appropriateness of sedation and have assessed the patient immediately prior to the procedure. All medicine(s) and interventions are by my order.
[2017-07-09] MEDS ORDERED: MIDAZOLAM HCL 1 MG/ML 2ML VIAL ONE (07:17)
[2017-07-09] MEDS ORDERED: FENTANYL CITRATE INJ 50 MCG/1 ML 2 ML VIAL ONE (07:18)
[2017-07-09] MEDS ORDERED: NITROGLYCERIN/D5W 100MCG/ML 20ML SYR ONE (07:18)
[2017-07-09] MEDS ORDERED: NiCARDipine HCL INJ 2.5 MG/ML 10 ML AMP ONE (07:18)
[2017-07-09] MEDS ORDERED: LIDOCAINE HCL 1% 20 ML VIAL ONE (07:18)
[2017-07-09] MEDS ORDERED: HEPARIN SOD (PORCINE) 1000 UNIT/ML 10 ML VIAL ONE (07:18)
[2017-07-09 07:26] LABS: PTT PATIENT 62.8 SECONDS (21.0-31.0)
--- NOTE | 2017-07-09 07:54 | CARDIOLOGY PROGRESS NOTE ---
DATE: 07/09/2017 TIME: 7:07 a.m. SUBJECTIVE: She denies any chest pain, shortness of breath, palpitations, edema, syncope, near syncope or bleeding. She states that if medical decisions need to be made for her while she is hospitalized, she prefers that her sister Sonja make the decisions for her as she is the most readily available family member. She has not notified her children of her being here yet, but she states that one of her other sisters has contacted her daughter for her. OBJECTIVE: VITAL SIGNS: Temperature 36.6 degrees, heart rate 71 beats per minute, respiration rate 20, blood pressure 156/79 mmHg; however, blood pressure has mostly been normotensive since yesterday morning, oxygen saturation is 95% on room air. I's and O's are incomplete. Weight is 70.3 kg. GENERAL: No acute distress. She is alert. NECK: No JVD. CARDIAC EXAM: No ventricular heave. Regular, normal S1 and S2. There is a 1/6 systolic murmur. No rubs or gallops. LUNGS: Clear. ABDOMEN: Soft, nontender, nondistended. Normoactive bowel sounds, no bruits noted. EXTREMITIES: No cyanosis or edema. PSYCHIATRIC: Affect appears appropriate. MEDICATIONS: Include aspirin 81 mg daily, atorvastatin is ordered but has not been taking it as she does not tolerate statin therapy, heparin drip per protocol, metoprolol tartrate 25 mg p.o. b.i.d. LABORATORY DATA: WBC is 5.5, hemoglobin 12.6, platelets 144. Peak troponin 0.813. Monitor strips have been reviewed. No arrhythmia noted. Echocardiogram 07/08/2017, normal LV size and systolic function. EF 60-65%. Normal wall motion. Mild LVH. Sclerotic aortic valve without stenosis. ASSESSMENT AND PLAN: 1. Non-ST elevation myocardial infarction: Symptoms were concerning for acute coronary syndrome. Continue aspirin. She is on a heparin drip. Coronary angiography is planned for this morning. She wishes to proceed with the procedure. She has been n.p.o. since 5 p.m. yesterday. 2. Dyslipidemia: She is intolerant to statin therapy and states that she has tried several different statins throughout her life. 3. Palpitations: No arrhythmia identified. It occurred during her episode of angina. No further symptoms. 4. Disposition: Coronary angiography today. 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 Her symptoms may have been secondary to arrhythmia. Recommended 30 day event monitor, but she declined. Recommended cardiology follow up in approx 2 weeks but she declined. She is willing to follow up in approx 1 month. Cardiology office notified and is making appointment. Recommend that she remain on metoprolol at time of discharge. Can be discharged from cardiac standpoint, if no new events today, 48 hour after symptom onset (this evening). Discussed with Kaela LOERA
--- NOTE | 2017-07-09 08:14 | Cardiology Procedure Brief Nt ---
Preliminary Cardiology Note Procedure Date Jul 09, 2017. Pre-Procedure Diagnosis nstemi Post-Procedure Diagnosis no obstructive CAD Procedure(s) Performed Cardiac cath Production Team Manager simón Stable Attendant(s) Glunt Estimated Blood Loss < 25 ml Preliminary Findings Mild non-obstructive CAD Recommendations medical management Specimens none Complication(s) None Disposition PCU
--- NOTE | 2017-07-09 08:16 | Consultant Recommendations ---
Moss Bleacher Recommendations Date of Service Jul 09, 2017. Moss Bleacher Recommendations ACTIVITY RECOMMENDATIONS: Excess manipulation of the wrist should be avoided for the next 24-48 hours. * No lifting over 2 pounds (approximately a 1/2 gallon of milk) with the utilized arm for 24 hours. * No strenuous activity such as bowling or tennis for 3 days. * Keep the site of the procedure covered with a bandage for 24 hours. *You may shower the day after the procedure. Do not take a tub bath or submerge the puncture site in water for the next 3 days. *Do not operate any motorized equipment for 3 days. SPECIAL CARE INSTRUCTIONS: The site may be slightly bruised and sore following your procedure. Should any of the following occur, contact the Dr. who performed your procedure. 1. Redness/inflammation, swelling, chills, or fever, or colored drainage at procedure site within 3-7 days after your procedure. 2. Coldness, discoloration, ongoing numbness, severe pain, or swelling. Expect mild tingling of hand and tenderness at the puncture site for up to three days. If this persists beyond three days, or other symptoms develop, notify the Dr. who performed your procedure. BLEEDING: If the procedure site on your wrist begins to bleed, do not panic 1. Place 1 or 2 fingers firmly just slightly above the insertion site to stop the bleeding. You may be able to feel your pulse as you hold pressure. 2. Lift your finger after 5 minutes to see if the bleeding has stopped. 3. Once the bleeding has stopped, gently wipe the wrist area clean with a bandage. * If the bleeding from your wrist does not stop after 10 minutes, or if there is a large amount of bleeding or spurting, call 911 (do not drive yourself to the hospital). SKIN IRRITATION: * You may experience some redness and/or swelling in the area where radiation was administered. If any skin irritation occurs, please contact your family physician. FOLLOW UP VISIT: Keep any scheduled doctor appointments.
--- NOTE | 2017-07-09 08:23 | Cardiac Catheterization ---
Procedure Note Procedure Date Jul 09, 2017. Pre-Procedure Diagnosis Non STEMI AUC Score 8 Post-Procedure Diagnosis Mild CAD, Elevated Intracardiac Pressures Procedure(s) Performed Coronary Angiography, Left Heart Cath Squeezer Operator Dr. Moreira 3Rd Grade Teacher(s) Glunt Estimated Blood Loss < 25 ml Medication(s) Fentanyl, Heparin, Nicardipine, Versed, Lidocaine 1% Summary of Findings Coronary angiography: 1. Left main coronary artery: No significant CAD. 2. Left anterior descending: The LAD is a large caliber vessel that wraps around the apex. Proximal LAD luminal irregularities up to 20%. Small caliber D1, D2, and D3 without significant CAD. Remainder of LAD without significant CAD. 3. Circumflex: The circumflex is initially a medium to large caliber vessel and then continues distally as a small caliber vessel. It gives rise to a large OM1. No significant CAD within the circumflex system. 4. Right coronary artery: The RCA is dominant. Medium to large caliber vessel. There are luminal irregularities proximally and distally. There is a medium caliber posterior descending artery and posterior lateral branch without significant CAD. Left heart catheterization: 1. Left ventriculography was not performed. An echo was performed during this hospitalization. 2. LVEDP was moderately elevated. LVEDP 20mmHg. (Patient did receive IV fluids due to renal insufficiency on admission.) 3. No significant aortic stenosis. The peak to peak transvalvular aortic gradient was approximately 8mmHg. Sedation start time: 7:42 a.m. Sedation end time: 8:06 a.m. Impression: 1. Mild nonobstructive CAD. 2. Moderately elevated LVEDP after receiving IV fluids for renal insufficiency on presentation. 3. No significant aortic stenosis. Plan: 1. Medical therapy. Hemodynamics Rest Ao: 145/62 Final Ao: 150/65 LV: 145/5/20 Recommendations Medical therapy and/or Counseling Specimens None Radiation Exposure (mGy) 918 mGy. Fluoro time 7.1 min Contrast (mls) 45 ml Visipaque Procedural Complication(s) None Disposition PCU ACC Data Cardiac Status Clinical evaluation leading to the procedure CAD Presntation: Non STEMI Anginal Classification: CCS III Heart Failure: No Cardiogenic Shock w/in 24Hrs: No Cardiac Arrest w/in 24Hrs: No Imaging studies past 6 months: Yes (echo) Stress studies past 6 months: No Standard Exercise Stress Test: No Stress Echocardiogram: No Stress Testing w/SPECT MPI: No Cardiac CTA: No Coronary Anatomy Dominant: Right Left Main (% Stenosis): Normal LAD (% Stenosis): Proximal (20%) D1 (% Stenosis): Normal D2 (% Stenosis): Normal D3 (% Stenosis): Normal Circumflex (% Stenosis): Normal OM1 (% Stenosis): Normal RCA (% Stenosis): Proximal (Luminal irregularities), Distal (Luminal irregularities) R PDA (% Stenosis): Normal R PL1 (% Stenosis): Normal Left Ventricular Angiography EF (%): n/a Diagnostic Physician's Name: Cornelius Moreira MD Status: Elective Closure Device Percutaneous Entry Location: Radial Closure Device: Radial Band Recommendations: Medical therapy and/or Counseling
[2017-07-09] MEDS ORDERED: SODIUM CHLORIDE 0.9% 1000ML 1,000 ML IV SCH (08:30)
[2017-07-09 09:57] LABS: CALCIUM 8.5 mg/dl (8.5-10.1); CREATININE 1.23 mg/dl (0.60-1.20)
[2017-07-09] MEDS: METOPROLOL TARTRATE 25 MG TAB PO SCH (10:29)
--- NOTE | 2017-07-09 10:31 | Clinical Documentation Query ---
CLINICAL DOCUMENTATION QUERY Dr. JANESSA GOEMZ, In your clinical opinion is this patient being managed for: ( x ) Acute kidney failure on CKD stage III ( ) Not Agree ( ) Other explanation of clinical findings (Please Explain) ( ) Unable to determine (Please Define) ( ) Need to Discuss The medical record reflects the following clinical findings, treatment, and risk factors. Clinical Indicators: 87 yo female presenting with NSTEMI. Documentation indicates RF (renal failure). Review of historical Cr showed Cr 1.10 in September 2016. Presented with Cr 1.43. GFR range of 33.1-45.7 over the past 2 years. Treatment: IV fluids, monitor PRP's Risk Factors: newly diagnosed mild nonobstructive CAD, NSTEMI Please clarify and document your clinical opinion in the progress notes and discharge summary. Terms such as "probable", "suspected", "likely", "questionable", "possible", or "still to be ruled out" are acceptable. IF IN AGREEMENT, YOU MUST DOCUMENT ABOVE DIAGNOSTIC STATEMENT IN DAILY PROGRESS NOTES AND DISCHARGE SUMMARY. This document is not part of the patient's record. Thank You, Fernanad Salazar, SAMM [phone]
[2017-07-09] MEDS ORDERED: ACET-1693 PO (15:03)
[2017-07-09] MEDS ORDERED: LPR25 PO (15:04)
[2017-07-09] MEDS ORDERED: ASPEC81 PO (15:04)
--- NOTE | 2017-07-09 15:16 | Discharge Instructions ---
Discharge Instructions Date of Service Jul 09, 2017. Admission Reason for Admission: Anginal Equivalent Discharge Discharge Diagnosis / Problem: Non-ST elevation myocardial infarction Discharge Goals Goal(s): Decrease discomfort, Improve function, Diagnostic testing, Therapeutic intervention Activity Recommendations Activity Limitations: resume your previous activity (as tolerated) . Instructions / Follow-Up Instructions / Follow-Up You were admitted to the hospital with chest tightness and shortness of breath, which was concerning for an acute cardiac event such as a heart attack. You were found to have elevated cardiac enzymes consistent with a myocardial infarction, or heart attack. You underwent an echocardiogram, or ultrasound of the heart, which was largely unremarkable. You then had a cardiac catheterization which showed mild but non-obstructing coronary artery disease. It is possible that the symptoms you experienced were due to a cardiac arrhythmia, so it is recommended that you wear a 30 day cardiac event monitor to see if any arrhythmias are recorded. As no intervention was needed during your cath and your symptoms have resolved, you are now medically stable for discharge. Medications: *Please take a baby aspirin 81 mg daily to help reduce your cardiovascular risk. *Please take metoprolol tartrate (Lopressor) 25 mg twice a day. This medication is for your heart. *Continue your other home medications as prescribed. Follow up: *You will be scheduled to follow up with your primary care provider as well as cardiology. Please seek medical attention if you experience fevers, chills, sweats, dizziness/lightheadedness, loss of consciousness, chest pain, shortness of breath, nausea, vomiting, numbness or tingling. Current Hospital Diet Patient's current hospital diet: AHA Diet (Heart Healthy) Discharge Diet Recommended Diet: AHA Diet (Heart Healthy) Procedures Procedures Performed: Cardiac catheterization Pending Studies Studies pending at discharge: no Medical Emergencies . Who to Call and When: Medical Emergencies: If at any time you feel your situation is an emergency, please call 911 immediately. . Non-Emergent Contact Non-Emergency issues call your: Primary Care Provider, Visual Merchandising Assistant Call Non-Emergent contact if: you have a fever, your pain is not controlled, your pain is worsening, your pain is unusual for you, your pain is concerning you, you have any medication questions . Past History Medical & Surgical History: (1) NSTEMI (non-ST elevated myocardial infarction) . "Provider Documentation" section prepared by Kaela Oliver. . Stave Grader Recommendations Stave Grader Recommendations: ACTIVITY RECOMMENDATIONS: Excess manipulation of the wrist should be avoided for the next 24-48 hours. * No lifting over 2 pounds (approximately a 1/2 gallon of milk) with the utilized arm for 24 hours. * No strenuous activity such as bowling or tennis for 3 days. * Keep the site of the procedure covered with a bandage for 24 hours. *You may shower the day after the procedure. Do not take a tub bath or submerge the puncture site in water for the next 3 days. *Do not operate any motorized equipment for 3 days. SPECIAL CARE INSTRUCTIONS: The site may be slightly bruised and sore following your procedure. Should any of the following occur, contact the Dr. who performed your procedure. 1. Redness/inflammation, swelling, chills, or fever, or colored drainage at procedure site within 3-7 days after your procedure. 2. Coldness, discoloration, ongoing numbness, severe pain, or swelling. Expect mild tingling of hand and tenderness at the puncture site for up to three days. If this persists beyond three days, or other symptoms develop, notify the Dr. who performed your procedure. BLEEDING: If the procedure site on your wrist begins to bleed, do not panic 1. Place 1 or 2 fingers firmly just slightly above the insertion site to stop the bleeding. You may be able to feel your pulse as you hold pressure. 2. Lift your finger after 5 minutes to see if the bleeding has stopped. 3. Once the bleeding has stopped, gently wipe the wrist area clean with a bandage. * If the bleeding from your wrist does not stop after 10 minutes, or if there is a large amount of bleeding or spurting, call 911 (do not drive yourself to the hospital). SKIN IRRITATION: * You may experience some redness and/or swelling in the area where radiation was administered. If any skin irritation occurs, please contact your family physician. FOLLOW UP VISIT: Keep any scheduled doctor appointments.
--- NOTE | 2017-07-09 15:34 | Discharge Summary ---
Discharge Summary Date of Service Jul 09, 2017. Discharge Summary Admission Date: Jul 08, 2017 at 08:38 Discharge Date: Jul 09, 2017 Discharge Disposition: Home Principal Diagnosis: NSTEMI Problems/Secondary Diagnoses: (1) Arthritis Status: Chronic (2) Hypothyroidism Status: Chronic Procedures: Cardiac cath: Procedure Note Procedure Date Jul 09, 2017. Pre-Procedure Diagnosis Non STEMI AUC Score 8 Post-Procedure Diagnosis Mild CAD, Elevated Intracardiac Pressures Procedure(s) Performed Coronary Angiography, Left Heart Cath Photogrammetric Stereo Compiler Dr. Moreira Assurance Sourcing Manager(s) Glunt Estimated Blood Loss < 25 ml Medication(s) Fentanyl, Heparin, Nicardipine, Versed, Lidocaine 1% Summary of Findings Coronary angiography: 1. Left main coronary artery: No significant CAD. 2. Left anterior descending: The LAD is a large caliber vessel that wraps around the apex. Proximal LAD luminal irregularities up to 20%. Small caliber D1, D2, and D3 without significant CAD. Remainder of LAD without significant CAD. 3. Circumflex: The circumflex is initially a medium to large caliber vessel and then continues distally as a small caliber vessel. It gives rise to a large OM1. No significant CAD within the circumflex system. 4. Right coronary artery: The RCA is dominant. Medium to large caliber vessel. There are luminal irregularities proximally and distally. There is a medium caliber posterior descending artery and posterior lateral branch without significant CAD. Left heart catheterization: 1. Left ventriculography was not performed. An echo was performed during this hospitalization. 2. LVEDP was moderately elevated. LVEDP 20mmHg. (Patient did receive IV fluids due to renal insufficiency on admission.) 3. No significant aortic stenosis. The peak to peak transvalvular aortic gradient was approximately 8mmHg. Sedation start time: 7:42 a.m. Sedation end time: 8:06 a.m. Impression: 1. Mild nonobstructive CAD. 2. Moderately elevated LVEDP after receiving IV fluids for renal insufficiency on presentation. 3. No significant aortic stenosis. Plan: 1. Medical therapy. Echo: Interpretation Summary * Name: PREMA DECKER Study Date: 07/08/2017 07:20 AM BP: 139/79 mmHg * Patient Location: [facility]\S\1 HR: 77 * : 1930 (M/d/yyyy) Gender: Female Height: 59 in * Age: 87 yrs Ethnicity: [place] Weight: 156 lb * Ordering Physician: Mino Garrison * Referring Physician: Self, Referred * Performed By: Bell Howe RDCS * * Reason For Study: Elevated troponin * BSA: 1.7 m2 * -- Conclusions -- * 1. Normal left ventricular size and systolic function. EF 60-65%. No regional wall motion abnormalities. Mild concentric left ventricular hypertrophy. * 2. Sclerotic aortic valve without significant stenosis. * 3. Technically difficult study, enhanced with IV Definity. * 4. No prior study available for comparison. Procedure Details * A complete two-dimensional transthoracic echocardiogram was performed (2D, M- mode, Doppler and color flow Doppler). * A contrast injection of Definity was performed to improve assessment of LV function. * Contrast was injected into an intravenous site in the right arm. * One vial of Definity ultrasound contrast was diluted in normal saline to a total volume of 10 ml. A total of '2' ml of solution was administered during imaging. * Lot # [id number] of Definity utilized for procedure. * Expiration date 1 jun 11. * The attending nurse who injected the contrast agent was Brandon Montaño RN. Left Ventricle * Normal left ventricular size and systolic function. EF 60-65%. No regional wall motion abnormalities. Mild concentric left ventricular hypertrophy. Right Ventricle * The right ventricle is normal in size and function. * The right ventricular systolic function is normal as assessed by tricuspid annular plane systolic excursion (TAPSE) (normal >1.5 cm). Atria * The left atrial size is normal. * Right atrial size is normal. * There is no evidence of atrial septal defect, but resolution does not allow assessment for a patent foramen ovale. Mitral Valve * There is moderate mitral annular calcification. * There is no mitral valve stenosis. * There is trace mitral regurgitation. Tricuspid Valve * The tricuspid valve is not well visualized, but is grossly normal. * There is no tricuspid stenosis. * Significant tricuspid regurgitation is absent. Aortic Valve * Sclerotic aortic valve without significant stenosis. * No hemodynamically significant valvular aortic stenosis. * There is no significant aortic regurgitation. Pulmonic Valve * The pulmonary valve is inadequately visualized, but the Doppler data is adequate for interpretation. * There is no pulmonic valvular stenosis. * There is no significant pulmonary regurgitation. Great Vessels * The aortic root is normal size. * Ascending aorta of normal dimension * Normal pulmonary venous flow pattern. Pericardium/Pleural * There is no pericardial effusion. Great Vessels * Normal IVC size with mildly reduced inspiratory collapse. Consultations: Cardiology Medication Reconciliation New Medications: Aspirin (Aspirin EC Low Dose) 81 Mg Ectab 81 MG PO QAM for 30 Days, #30 TABS Metoprolol Tartrate (Lopressor) 25 Mg Tab 25 MG PO BID for 30 Days, #60 TAB Continued Medications: Acetaminophen Tab (Tylenol) 325 Mg Tab 650 MG PO UD PRN for Pain, TAB every 4-6 hours as needed for pain Calcium & Phosphorus W/ Vitami (Calcium Gummies) 1 Chw Chw 1 TAB PO QAM Levothyroxine Sodium (Levothyroxine Sodium) 125 Mcg Tab 125 TAB PO QAM for 90 Days, TAB 3 Refills Multiple Vitamins W/ Minerals (Adult One Daily Gummies) 1 Chw Chw 1 TAB PO QAM Discharge Exam Patient reports feeling well. She states she hasn't had any symptoms since the time the ambulance arrived on 07/07. She denies chest pain, palpitations, shortness of breath, dizziness/lightheadedness, weakness and fatigue. The patient denies fevers, chills, sweats, chest pain, palpitations, claudication, cough, wheezing, shortness of breath, nausea, vomiting, abdominal pain, dysuria , hematuria, urinary retention, paralysis, weakness, numbness and tingling. Constitutional: No fever, No chills, No sweats Eyes: No worsening of vision, No eye pain, No diplopia ENT: No hearing loss, No nasal symptoms, No trouble swallowing Respiratory: No cough, No wheezing, No shortness of breath Cardiovascular: No chest pain, No claudication, No palpitations Abdomen: No pain, No nausea, No vomiting Musculoskeletal: No joint pain, No muscle pain, No swelling Genitourinary - Female: No dysuria, No urinary retention, No hematuria Neurologic: No paralysis, No weakness, No numbness/tingling Integumentary: No rash, No itch, No color change General appearance: +Obese. Well-developed, well-nourished, no apparent distress Head: Normocephalic, atraumatic Eyes: Normal inspection, PERRL, EOMI ENT: Normal ENT inspection, hearing grossly normal, pharynx normal Neck: Supple, no JVD, trachea midline Respiratory/Chest: Lungs clear to auscultation, normal breath sounds, no respiratory distress Cardiovascular: Regular rate & rhythm, no gallop, no murmur Abdomen/GI: Normal bowel sounds, non-tender, soft Extremities/Musculoskeletal: Normal inspection, no calf tenderness, no pedal edema Neurological/Psych: Alert, normal mood/affect, oriented x 3 Skin: Normal color, warm/dry, no rash Hospital Course 87 y/o female with a history of HLD, hypothyroidism, and arthritis who presented with chest tightness, shortness of breath, palpitations, near syncope and sudden weakness. NSTEMI--resolving -Admit to telemetry. No acute events overnight. Pt in SR with HR 60s-70s -Troponin w/in AMI range. Troponin peaked at 0.813, trending down -Placed on heparin drip at admission -D-dimer elevated. CTA chest negative for PE -Cardiac cath shows mild non-obstructive CAD -Echo shows EF 60-65%. No WMA. mild concentric LVH. -Cardiology consulted, appreciate recs: Discharge with beta lucy. Patient has tried several statins and did not tolerate, refusing here in the hospital. Recommend 30 day event monitor as symptoms concerning for arrhythmia. Recommend following up in 2-3 weeks but pt not agreeable, will follow up in 1 month. -Pt agreeable to 30 day event monitor, will set up with cardiology -Continue ASA 81 mg PO qd and Lopressor 25 mg PO BID. Intolerant to statins [place]--improving -Creatinine 1.23 on discharge Hypothyroidism -Continue Synthroid 125 mcg PO qd DVT prophylaxis -Heparin drip Code Status -Level I, FULL RESUSCITATION STATUS I personally interviewed and examined the patient. I agree with history of present illness and physical exam mentioned above, I also performed my own history taking and examination. Past medical history and review of system has been obtained by myself I reviewed all pertinent labs and studies Reviewed current medications I discussed and formulated of the assessment and plan mentioned above. Please refer to the Summary mentioned below. 87-year-old female admitted to the hospital with chest pain, d-dimer was found to be elevated in ED, CT angiogram was done and ruled out any pulmonary embolism or aortic dissection, patient troponin was elevated. Patient went to cardiac catheterization and was found to have only 20% lesion in LAD, no stent was placed. Patient was cleared for discharge home by chief medical technologist. General Appearance: not in acute distress Eyes: normal Sclerae, extraocular muscle intact ENT: hearing grossly normal Neck: supple Respiratory/Chest: normal air entry bilateral ,no respiratory distress, no accessory muscle use Cardiovascular: regular rate, rhythm, no murmur Abdomen: non tender, soft, no masses Extremities: no edema Neurologic/Psychiatric: Awake alert oriented times place and person moves all extremities sensation intact cranial nerves II-12 appear to be intact Skin: normal color, warm/dry, no rash Jenn Joseph MD, [facility] hospitalist group Total Time Spent: Greater than 30 minutes This includes examination of the patient, discharge planning, medication reconciliation, and communication with other providers. Discharge Instructions Please refer to the electronic Patient Visit Report (Discharge Instructions) for additional information. Additional Copies To Margarita Maki
== END 2017-07-09 18:05 | disposition home or self-care (01) | DRG 281 ==
LOC: EDBD 18:46 → C.EDC 18:47 → C.MED 21:57 → CANRESERV 22:15 → ENRESERV 22:15 → OBSVTOIN 07-08 08:38 → ENRESERV 07-09 08:12 → C.2T 07-09 08:36
PROVIDERS: ADMIT Internal Medicine; ATTEND Internal Medicine
PROC: B211YZZ Fluoroscopy of Multiple Coronary Arteries using Other Contrast (ICD-10-PCS; principal; 2017-07-09 07:33)
PROC: 4A023N7 Measurement of Cardiac Sampling and Pressure, Left Heart, Percutaneous Approach (ICD-10-PCS; principal; 2017-07-09 07:33)
DX: I21.4 Non-ST elevation (NSTEMI) myocardial infarction (principal); N17.9 Acute kidney failure, unspecified; I25.10 Atherosclerotic heart disease of native coronary artery without angina pectoris; N18.3 Chronic kidney disease, stage 3 (moderate); E03.9 Hypothyroidism, unspecified; E78.5 Hyperlipidemia, unspecified; R00.2 Palpitations; Z79.899 Other long term (current) drug therapy; Z87.891 Personal history of nicotine dependence; Z88.2 Allergy status to sulfonamides